=== PATIENT | male | born 1985 | race Caucasian/White ===

== ENCOUNTER 2021-06-27 18:05 | Emergency (ER) | payer OTHER ==
[~2021-06-27] VITALS: Ht 167.6 cm; Wt 70.0 kg
[2021-06-27 18:18] VITALS: BP 113/62
[2021-06-27] MEDS ORDERED: VIRTUSSIN AC 1118 ML PO (19:08)
[2021-06-27] MEDS ORDERED: TESSALON P100 MG/CAP PO (19:08)
[2021-06-27] MEDS ORDERED: TYLENOL 325MG325 MG PO (19:08)
[2021-06-27] MEDS ORDERED: MOTRIN 400400 MG/TAB PO (19:09)
[2021-06-27 19:44] VITALS: PULSE 65; TEMP 98.6
[2021-06-27] MEDS ORDERED: NORCO 325 MG-51 TAB PO (19:53)
== END 2021-06-27 20:24 | disposition home or self-care (01) ==
LOC: COL.ER 18:05
DX: S93.401A Sprain of unspecified ligament of right ankle, initial encounter (principal); X58.XXXA Exposure to other specified factors, initial encounter

== ENCOUNTER → 2021-08-21 | Outpatient (CLI) | payer OTHER ==
[~2021-08-21] MED LIST: MOTRIN 400400 MG/TAB PO; NORCO 325 MG-51 TAB PO; TESSALON P100 MG/CAP PO; TYLENOL 325MG325 MG PO; VIRTUSSIN AC 1118 ML PO
== END ==
LOC: COL.RAD 10:54
DX: R11.2 Nausea with vomiting, unspecified (principal); R10.32 Left lower quadrant pain
CPT/HCPCS: Q9967

== ENCOUNTER 2021-12-18 12:29 | Day surgery (SDC) | payer OTHER ==
[~2021-12-18] VITALS: Ht 167.6 cm; Wt 71.7 kg
--- NOTE | 2021-12-18 12:30 | NUR ---
Communication with pt accomplished with designer architect: [id number] #[id number]. Pt receives and gives communication well.
[2021-12-18 13:00] VITALS: BP 119/72; PULSE 70; TEMP 98.7
[2021-12-18 14:55] VITALS: BP 109/82; PULSE 66; TEMP 98
[2021-12-18 15:15] VITALS: BP 115/70; PULSE 63
[2021-12-18 15:30] VITALS: BP 126/72; PULSE 63
--- NOTE | 2021-12-18 15:38 | NUR ---
1455 Pt returns from endo procedure via cart and RN assist to [facility] [place] [facility]. Monitors on and alarms set. Call light within reach. This RN continues care of pt postoperatievely. Pt alert and oriented. Pt requests muffin and Sprite. Pt denies any pain or nausea. Handwriting between this caregiver and pt used for communication. 1505 Pt taking food and drink well. No complications noted. 1530 Discharge instructions given to pt. All questions answered to his satisfaction. Handed to pt are a thank you card and discharge information. 1538 Pt transferred out of the hospital via wheelchair and this RN assist. 1600 Pt's arrives to Patient Entrance. Pt transferred to private vehicle driven by pt's .
[2021-12-18 20:11] VITALS: BP 116/77; PULSE 63
== END 2021-12-18 15:38 | disposition home or self-care (01) ==
LOC: SDCO 12:29
DX: D12.5 Benign neoplasm of sigmoid colon (principal); K20.90 Esophagitis, unspecified without bleeding; K29.50 Unspecified chronic gastritis without bleeding; R19.7 Diarrhea, unspecified
CPT/HCPCS: J2704; J7120

== ENCOUNTER 2022-09-07 13:35 | Emergency (ER) | payer SELFPAY ==
[~2022-09-07] VITALS: Ht 167.6 cm; Wt 71.8 kg
[2022-09-07 13:55] VITALS: TEMP 98.6
[2022-09-07 14:54] LABS: BASO % 0.2 % (0.0-2.0); EOS % 0.1 % (0.0-4.0); GRAN # 6.3 K/mm3 (1.4-6.5); GRAN % 75.3 % (42.2-75.2); HEMATOCRIT 50.5 % (42.0-52.0); LYMPH # 1.3 K/mm3 (1.2-3.4); LYMPH % 15.5 % (20.0-51.0); MEAN CELL VOLUME 82 fl (80.0-100.0); MEAN CORPUSCULAR HEMOGLOBIN 29 pg (27-31); MEAN CORPUSCULAR HGB CONC 36 g/dl (33.0-37.0); MEAN PLATELET VOLUME 11.4 fl (7.4-10.4); MONO # 0.7 K/mm3 (0.1-0.6); MONO % 8.7 % (1.7-9.3); PLATELET COUNT 200 K/mm3 (130-400); RED BLOOD COUNT 6.19 M/mm3 (4.20-5.60); REDCELL DISTRIBUTION WIDTH-CV 11.9 % (11.5-14.5)
[2022-09-07 14:55] LABS: HEMOGLOBIN 18.2 g/dl (13.5-18.0)
[2022-09-07 15:13] LABS: ALBUMIN 3.7 gm/dL (3.5-5.0); C-REACTIVE PROTEIN 4.74 mg/dL (0.00-0.50); CALCIUM 9.4 mg/dL (8.4-10.2); CREATININE, serum 0.78 mg/dL (0.72-1.25); POTASSIUM 3.4 mmol/L (3.5-4.5); TOTAL PROTEIN 7.7 gm/dL (6.2-8.1)
[2022-09-07 16:28] LABS: BILIRUBIN,TOTAL 0.8 mg/dL (0.2-1.2)
[2022-09-07] MEDS ORDERED: ZOFRAN ODT4 MG PO (17:01)
[2022-09-07 17:10] VITALS: BP 141/73; PULSE 67
== END 2022-09-07 17:10 | disposition home or self-care (01) ==
LOC: COL.ER 13:35
PROVIDERS: Nurse Practitioner
DX: J10.1 Influenza due to other identified influenza virus with other respiratory manifestations (principal); Z28.310 Unvaccinated for COVID-19; Z20.822 Contact with and (suspected) exposure to COVID-19
CPT/HCPCS: J2405; J7030